=== PATIENT | male | born 1990 | race Caucasian/White ===

== ENCOUNTER 2017-03-26 08:19 | Emergency (ER) | payer MEDICAID ==
--- NOTE | 2017-03-26 08:42 | EDPHY ---
H & P Time Seen by Provider: 03/26/17 08:41 HPI/ROS: Chief complaint. Headache, fever, nausea HPI. 26-year-old male presents emergency department with complaint that he was diagnosed with hepatitis C with month ago. He was at a [facility] [employer] last week and left his regular medications. He called back with a had disposed of them. He has been off his medication for 1 week. He has had manic depressive illness and taking these meds since he was a teenager. He has some racing thoughts and anxiety but no suicide ideation. He has occasional sensation of fever and headache and nausea but he attributes these to being off his medication. He would like to be back on his medication ROS Constitutional. Subjective fever Eyes. no problems with vision ENT. no sore throat, no nasal drainage Cardiovascular. no chest pain Respiratory. no shortness of breath, no cough Abdominal. No abdominal pain but occasional nausea without vomiting or . no problems urinating MS. no calf pain/swelling, no neck/back pain, no joint pain Skin. no rash Lymph. no swollen glands Neuro. Occasional headache Past Medical/Surgical History: Bipolar illness, hep C, attention deficit hyperactivity disorder Social History: Single, daily smoker, no alcohol Smoking Status: Current every day smoker Physical Exam: General Appearance: Alert well-developed male mild distress vital signs are stable with initial heart rate 110 Eyes: Pupils equal and round no pallor or injection. ENT, Mouth: Mucous membranes are moist. Respiratory: There are no retractions, lungs are clear to auscultation. Cardiovascular: Regular rate and rhythm. Gastrointestinal: Abdomen is soft and nontender, no masses, bowel sounds normal. Neurological: Awake and alert, sensory and motor exams grossly normal. Skin: Warm and dry, no rashes. Musculoskeletal: Neck is supple nontender. Extremities symmetrical, full range of motion. Psychiatric: Patient is oriented X 3, there is no agitation. Constitutional: Initial Vital Signs Temperature (C) 36.4 C 03/26/17 08:25 Heart Rate 110 H 03/26/17 08:25 Respiratory Rate 20 03/26/17 08:25 Blood Pressure 173/100 H 03/26/17 08:25 O2 Sat (%) 100 03/26/17 08:25 O2 Delivery Mode Room Air Allergies/Adverse Reactions: No Known Allergies Allergy (Unverified 03/26/17 08:31) Home Medications: Medication Instructions Recorded ARIPiprazole [Abilify 5 mg (*)] 5 mg PO DAILY #7 tab 03/26/17 Abilify 03/26/17 Adderall 10 mg Tablet 03/26/17 Dextroamphetamine/Amphetamine 15 mg PO DAILY #7 cap.er.24h 03/26/17 [Adderall Xr 15 mg Capsule] Effexor 03/26/17 Gabapentin 03/26/17 Gabapentin 600 mg PO TID #21 tablet 03/26/17 Venlafaxine Xr [Effexor Xr] 300 mg PO BID #28 cap 03/26/17 Medical Decision Making ED Course/Re-evaluation: We called [facility] where he normally feels his prescription and verified his medications. Re-evaluation the patient is stable. He and I discussed treatment plan including criteria for return importance of follow-up and further evaluation. He expresses understanding agreement Differential Diagnosis: No evidence for acute illness. I think his symptoms are related to being off his medication abruptly. No suicide ideation Departure - Departure Disposition: Home, Routine, Self-Care Clinical Impression: Medication refill Condition: Good Instructions: Bipolar Disorder (ED) Additional Instructions: Start taking your medication again as prescribed. Follow up this week with [facility] for further medication and discussion for treatment of hepatitis-C. Return for worsening symptoms or thoughts of harming yourself or others Referrals: BERNARD THOMPSON,. [Primary Care Provider] - 2-3 days, call for appt. Prescriptions: ARIPiprazole [Abilify 5 mg (*)] 5 mg PO DAILY #7 tab Dextroamphetamine/Amphetamine [Adderall Xr 15 mg Capsule] 15 mg PO DAILY #7 cap.er.24h Gabapentin 600 mg PO TID #21 tablet Venlafaxine Xr [Effexor Xr] 300 mg PO BID #28 cap
[2017-03-26 09:31] VITALS: BP 132/62; PULSE 87; RESP 18; TEMP 98; O2SAT 97
== END 2017-03-26 09:30 | disposition home or self-care (01) ==
LOC: CED 08:19
DX: Z76.0 Encounter for issue of repeat prescription (principal); F17.200 Nicotine dependence, unspecified, uncomplicated